=== PATIENT | female | born 1950 | race Caucasian/White ===

== ENCOUNTER → 2016-06-20 | Outpatient (CLI) | payer OTHER ==
[~2016-06-20] MED LIST: AVALIDE 150-12.1 TAB PO; BENICAR HCT PO; COREG CR10 M1 PO; CRESTOR10 MG PO; CYMBALTA PO; CYMBALTA30 MG PO; PREMARIN PO; SYNTHROID PO
--- NOTE | ~2016-06-20 | MY11 ---
[facility] A Service of [facility] RADIOLOGY TEXT RESULTS PATIENT: SALINA SALOMON LOCATION: [facility] : 48 UNIT #: [id number] AGE: [address]: Sherri Allan MD SEX: F ORDER DR: [id number] [facility] [address] [place], [place] [address] [id number] O MR#: [id number] Acc #: [id number] NAME: SALINA SALOMON : 1950 SEX: F STUDY DATE/TIME: 06/20/2016 11:28 UNIT: [facility] ROOM: STUDY DESCRIPTION: MY Mammogram Screening Dig Ruben Attending Physician: Sherri Allan M.D. Referring Physician: Sherri Allan M.D. Ordering Physician: Sherri Allan M.D. Primary Care Physician: Sherri Allan M.D. MEDICAL IMAGING REPORT This report is preliminary unless electronic signature is present EXAM Digital screening mammogram 06/20/2016 HISTORY 65-year-old woman, no risk elevation. Annual screening. COMPARISON STUDIES Mammograms 11/22/2008 and 07/28/2014. FINDINGS Digital imaging of each breast was completed utilizing screening protocol. Review includes FDA-approved CAD device. Breast parenchyma is heterogeneously dense. Subareolar duct prominence is noted in each breast. There is no dominant mass. I see no suspicious microcalcifications and no suspicious architectural deformity. IMPRESSION Stable benign mammogram. Annual screening recommended. BIRADS: 2 Benign Finding. Patients over the age of 40 are entered into a reminder system with target due date for the next mammogram. A result letter will also be sent to the patient. Dictated by... Nilton Guardado M.D. THIS IS AN ELECTRONICALLY VERIFIED REPORT Nilton Guardado M.D. at 06/21/2016 8:[address]/paul [facility] A Service of [facility] RADIOLOGY TEXT RESULTS PATIENT: SAL[id number] [birth year] UNIT #: [id number] AGE: [address]: Sherri Allan MD SEX: F ORDER DR: TD: 06/20/2016 15:46 JOB #: [id number] MEDICAL IMAGING REPORT Page 1 of 1 COPY
--- NOTE | ~2016-06-20 | BD1 ---
[facility] A Service of [facility] RADIOLOGY TEXT RESULTS PATIENT: SALINA SALOMON LOCATION: [facility] : 48 UNIT #: [id number] AGE: [address]: Sherri Allan MD SEX: F ORDER DR: [id number] [facility] [address] [place], [place] [address] [id number] O MR#: [id number] Acc #: [id number] NAME: SALINA SALOMON : 1950 SEX: F STUDY DATE/TIME: 06/20/2016 11:25 UNIT: [facility] ROOM: STUDY DESCRIPTION: BD Dexa Bone Dens 1+ Site Attending Physician: Sherri Allan M.D. Referring Physician: Sherri Allan M.D. Ordering Physician: Sherri Allan M.D. Primary Care Physician: Sherri Allan M.D. MEDICAL IMAGING REPORT This report is preliminary unless electronic signature is present EXAM DXA scan. DATE OF EXAM 06/20/2016 HISTORY Status post menopause with no hormone replacement therapy. Osteopenia. Hysterectomy at age 40 with removal of both ovaries. Hypertension with blood pressure medication for 30 years. Thyroid medication Synthroid use for 40 years. Family history of osteoporosis in mother and sister. FINDINGS Bone mineral density in the lumbar spine from L1 through L4 is 1.222 g/cm2 which is 1.6 standard deviations above the mean when compared to the young adult reference population which is within the range of normal. This is 3.5 standard deviations above the mean when compared to the age-matched population. Bone mineral density in the left femoral neck was 0.71 g/cm2 which is 1.3 standard deviations below the mean when compared to the young adult reference population which is characteristic of osteopenia. This is 0.3 standard deviations above the mean when compared to the age-matched population. IMPRESSION Bone mineral density in the lumbar spine within the range of normal and within the left hip characteristic of osteopenia. Dictated by... Jose Martinez M.D. THIS IS AN ELECTRONICALLY VERIFIED REPORT Jose Martinez M.D. at 06/21/2016 8:11 AM [facility] A Service of [facility] RADIOLOGY TEXT RESULTS PATIENT: SALINA SALOMON LOCATION: [facility] #: [id number] : 48 UNIT #: [id number] AGE: [address]: Sherri Allan MD SEX: F ORDER DR: RON/raffi TD: 06/20/2016 16:18 JOB #: [id number] MEDICAL IMAGING REPORT Page 1 of 1 COPY
== END | disposition home or self-care (01) ==
LOC: CWCC 10:43
DX: Z12.31 Encounter for screening mammogram for malignant neoplasm of breast (principal); Z78.0 Asymptomatic menopausal state; M85.88 Other specified disorders of bone density and structure, other site
CPT/HCPCS: 77080; G0202

== ENCOUNTER → 2016-08-22 | Outpatient (CLI) | payer OTHER ==
--- NOTE | ~2016-08-22 | PFT ---
[id number] [facility] [address] [place], [place] [address] [id number] O MR#: [id number] NAME: SALINA SALOMON ROOM: SEX: F STUDY DATE/TIME: 08/22/2016 : 1950 AGE: 65 STUDY DESCRIPTION: Attending Physician: Sherri Allan M.D. Referring Physician: Sherri Alaln M.D. Primary Care Physician: Sherri Allan M.D. PULMONARY DIAGNOSTIC REPORT EXAM Pulmonary Function Test DESCRIPTION Spirometry is normal. There is no significant response to bronchodilators. Flow volume loop is unremarkable. Lung volumes are essentially normal. ERV is reduced which can be seen in obesity. Diffusion capacity is very mildly reduced. Causes of isolated reduced diffusion capacity could be pulmonary vascular disease, early interstitial lung disease, emphysema, anemia, etc. Consider repeat PFTs in approximately six months to monitor diffusion capacity. Dictated by... Alva Escobar/leslee TD: 08/28/2016 07:22 JOB #: [id number] CC: Sherri Allan M.D. PULMONARY DIAGNOSTIC REPORT Page 1 of 1
== END | disposition home or self-care (01) ==
LOC: CRC 08-05 11:00
DX: J98.4 Other disorders of lung (principal)
CPT/HCPCS: 94060; 94726; 94729